=== PATIENT | male | born 1970 | race Two or more races ===

== ENCOUNTER 2017-11-18 14:06 | Day surgery (SDC) | payer OTHER ==
[2017-11-18] MEDS ORDERED: LIDOCAINE 2% (SDV) 5 ML INJ (16:07)
[2017-11-18] MEDS ORDERED: PROPOFOL 40 ML ×2 (16:07→17:02)
== END 2017-11-18 18:40 | disposition home or self-care (01) ==
LOC: GIL 14:06
DX: Z12.11 Encounter for screening for malignant neoplasm of colon (principal); D12.2 Benign neoplasm of ascending colon; D12.4 Benign neoplasm of descending colon; D12.5 Benign neoplasm of sigmoid colon; D12.3 Benign neoplasm of transverse colon; K20.9 Esophagitis, unspecified; K29.70 Gastritis, unspecified, without bleeding
CPT/HCPCS: 43239; 88305; 88312; 88313